=== PATIENT | female | born 1975 | race Hispanic/Latino ===

== ENCOUNTER 2018-09-06 22:34 | Emergency (ER) | payer MEDICAID ==
[2018-09-06 22:47] VITALS: BP 131/84; PULSE 81; RESP 16; TEMP 98.5; O2SAT 100
--- NOTE | 2018-09-06 23:51 | C.PDOC ---
History Of Present Illness 43 year old female was reaching for something at home in the kitchen, she climbed onto the table and fell hitting her right elbow. She is currently complaining of pain and swelling to the right elbow. Denies weakness, numbness, or other injury. Patient took motrin at home. Time Seen by Provider: 09/06/18 22:48 Chief Complaint (Nursing): Upper Extremity Problem/Injury History Per: Patient History/Exam Limitations: no limitations Onset/Duration Of Symptoms: Hrs Current Symptoms Are (Timing): Still Present Recent travel outside of the [place]: No Past Medical History Reviewed: Historical Data, Nursing Documentation, Vital Signs Vital Signs: Last Vital Signs Temp 98.5 F 09/06/18 22:42 Pulse 81 09/06/18 22:42 Resp 16 09/06/18 22:42 BP 131/84 09/06/18 22:42 Pulse Ox 100 09/06/18 22:42 Primary Care Provider: Brian Cruz Family History: States: Unknown Family Hx - Social History Hx Alcohol Use: No Hx Substance Use: No Review Of Systems Musculoskeletal: Positive for: Other (Right elbow pain and swelling) Neurological: Negative for: Weakness, Numbness Physical Exam - Physical Exam Appears: Non-toxic Skin: Normal Color, Warm Head: Atraumatic, Normacephalic Eye(s): bilateral: Normal Inspection Extremity: Capillary Refill (<2 seconds), No Deformity, Other (Tenderness to right elbow, unable to extend elbow, holding arm in semiflexed position) Pulses: Left Radial: Normal, Right Radial: Normal Neurological/Psych: Oriented x3, Normal Speech, Normal Motor, Normal Sensation ED Course And Treatment O2 Sat by Pulse Oximetry: 100 (Room air) Pulse Ox Interpretation: Normal - Other Rad right elbow xray X-Ray: Interpreted by Me, Read By Radiologist Interpretation: anterior and posterior fat pad Progress Note: long arm posterior splint applied by CP and checked by me. Arm sling given. Patient was referred to Orthopedist for f/u. Disposition - Disposition Referrals: Alexander Acosta MD [Staff Provider] - Disposition: HOME/ ROUTINE Disposition Time: 23:49 Condition: STABLE Additional Instructions: Follow up with Orthopedist within 2-3 days. Return to ED if feel worse. Prescriptions: traMADol [Ultram] 50 mg PO Q6 #20 tab Instructions: Elbow Fracture (DC) Forms: [employer] (Swedish) - Clinical Impression Clinical Impression: Elbow fracture, right - PA / HR REPRESENTATIVE / Resident Statement MD/DO has reviewed & agrees with the documentation as recorded. - Scribe Statement The provider has reviewed the documentation as recorded by the Scribe Leonard Carrion All medical record entries made by the Scribe were at my direction and personally dictated by me. I have reviewed the chart and agree that the record accurately reflects my personal performance of the history, physical exam, [facility] decision making, and the department course for this patient. I have also personally directed, reviewed, and agree with the discharge instructions and disposition.
--- NOTE | 2018-09-07 10:27 | RAD ---
Date of service: 09/06/2018 PROCEDURE: Radiographs of the right elbow. HISTORY: fall COMPARISON: No prior. TECHNIQUE: 3 views obtained. FINDINGS: BONES: Bone alignment and mineralization are normal. There is an acute nondisplaced fracture in the head of the radius. JOINTS: Normal. No osteoarthritis. SOFT TISSUES: Normal. JOINT EFFUSION: Moderate joint effusion. OTHER FINDINGS: None. IMPRESSION: Acute nondisplaced fracture in the head of the radius and moderate joint effusion. No dislocation. The final report is tagged to the PA review folder.
== END 2018-09-07 00:33 | disposition home or self-care (01) ==
LOC: C.ER 22:34
DX: S52.121A Displaced fracture of head of right radius, initial encounter for closed fracture (principal); W17.89XA Other fall from one level to another, initial encounter